=== PATIENT | male | born 1950 | race Caucasian/White ===

== ENCOUNTER 2025-01-03 10:02 | Inpatient (IN) ==
--- NOTE | 2024-12-22 08:58 | PAT Medication Instructions ---
Medication Instructions Date of Service December 22, 2024 Home Medications albuterol sulfate 90 mcg/actuation aerosol inhaler 1 inh inhalation QID PRN sob aspirin 81 mg tablet,delayed release 81 mg PO QAM atorvastatin 80 mg tablet 80 mg PO QAM cetirizine 10 mg tablet (Zyrtec) 10 mg PO DAILY PRN Allergy Symptoms hydrochlorothiazide 25 mg tablet 25 mg PO QAM metoprolol succinate 25 mg tablet,extended release 24 hr 25 mg PO QAM nitroglycerin 0.6 mg sublingual tablet 0.6 mg buccal UD PRN cp omeprazole 20 mg tablet,delayed release 20 mg PO QAM rivaroxaban 20 mg tablet (Xarelto) 20 mg PO QAM tamsulosin 0.4 mg capsule (Flomax) 0.4 mg PO BID Continue as directed nitroglycerin 0.6 mg sublingual tablet 0.6 mg buccal UD PRN cp (if needed) ASK your prescriber and surgeon rivaroxaban 20 mg tablet (Xarelto) 20 mg PO QAM aspirin 81 mg tablet,delayed release 81 mg PO QAM DO NOT take the morning of surgery cetirizine 10 mg tablet (Zyrtec) 10 mg PO DAILY PRN Allergy Symptoms hydrochlorothiazide 25 mg tablet 25 mg PO QAM Take morning of surgery With a small sip of water, OTHERWISE NOTHING TO EAT OR DRINK AFTER MIDNIGHT: albuterol sulfate 90 mcg/actuation aerosol inhaler 1 inh inhalation QID PRN sob (use if needed; please bring rescue inhaler with you to hospital day of surgery if possible) atorvastatin 80 mg tablet 80 mg PO QAM metoprolol succinate 25 mg tablet,extended release 24 hr 25 mg PO QAM omeprazole 20 mg tablet,delayed release 20 mg PO QAM tamsulosin 0.4 mg capsule (Flomax) 0.4 mg PO BID Take evening before surgery albuterol sulfate 90 mcg/actuation aerosol inhaler 1 inh inhalation QID PRN sob (if needed) cetirizine 10 mg tablet (Zyrtec) 10 mg PO DAILY PRN Allergy Symptoms (if needed) tamsulosin 0.4 mg capsule (Flomax) 0.4 mg PO BID Other Notes If you have any questions please call us at [phone] or [phone] or [phone] or [phone]
--- NOTE | 2024-12-22 12:50 | Anesthesiology Consultation ---
Date of Service December 22, 2024 Assessment & Plan (1) Encounter for pre-operative examination: - ASA/Xarelto instructions per surgeon/prescriber - Infectious disease screening: Per assessment on 12/22/24- No known recent infectious disease contacts or current infectious disease symptoms. - PCP note (12/22/24): Low to moderate risk.. Patient is cleared for scheduled surgery. - Acceptable risk for surgery pending surgeon-ordered cardiology preop note ([facility]). Chart Review Chart Review: Patient seen in Pre Admission Testing Teaching & Discussion Pre-Anesthesia Teaching/Discussion Notes: Instructed NPO after midnight before surgery,except medications with 15 cc of water. Medication instructions provided according to the PAT guidelines. History Surgery Operation Date: 01/04/25 12:25 Proposed Procedures p L2-L4 Decompression and Fusion - Dom Márquez DO Height/Weight Height: 5 ft 7 in Weight: 100.5 kg Allergies Allergy/AdvReac Type Severity Reaction Status Date / Time No Known Allergies Allergy Verified 12/22/24 08:01 Medications Home Medications Medication Instructions Recorded Confirmed Last Taken albuterol sulfate 90 mcg/actuation 1 inh inhalation QID PRN sob 12/22/24 12/22/24 Unknown aerosol inhaler aspirin 81 mg tablet,delayed 81 mg PO QAM 12/22/24 12/22/24 Unknown release atorvastatin 80 mg tablet 80 mg PO QAM 12/22/24 12/22/24 Unknown cetirizine 10 mg tablet (Zyrtec) 10 mg PO DAILY PRN Allergy Symptoms 12/22/24 12/22/24 Unknown hydrochlorothiazide 25 mg tablet 25 mg PO QAM 12/22/24 12/22/24 Unknown metoprolol succinate 25 mg 25 mg PO QAM 12/22/24 12/22/24 Unknown tablet,extended release 24 hr nitroglycerin 0.6 mg sublingual 0.6 mg buccal UD PRN cp 12/22/24 12/22/24 Unknown tablet omeprazole 20 mg tablet,delayed 20 mg PO QAM 12/22/24 12/22/24 Unknown release rivaroxaban 20 mg tablet (Xarelto) 20 mg PO QAM 12/22/24 12/22/24 Unknown tamsulosin 0.4 mg capsule (Flomax) 0.4 mg PO BID 12/22/24 12/22/24 Unknown Past Medical History Medical History Allergy-induced asthma Arthritis BPH (benign prostatic hyperplasia) CAD (coronary artery disease) 2022 > stent x1 Follows with [facility] cardio Carotid artery disease Carotid duplex 06/2024: <50% B/L ICA stenosis Degenerative disc disease GERD (gastroesophageal reflux disease) Hiatal hernia History of myocardial infarction (2002) Hx pulmonary embolism 2017, after long car ride Taking Xarelto Hyperlipidemia Hypertension Neuropathy Spinal stenosis Exercise / Class Metabolic Activity III < 4 Walking/Shop/Light housework Past Family History Family History Other No family history of adverse response to anesthesia Past Surgical History Surgical History H/O inguinal hernia repair R/L H/O wrist surgery Left History of cardiac cath 2022 > stent x1 History of carpal tunnel release Right History of colonoscopy History of heart artery stent 2022 > stent x1 History of repair of rotator cuff R/L Hx of vasectomy [place] teeth removed Past Anesthesia History No Hx of Anesthesia Complications and No Family Hx of Anesthesia Complications History of PONV No Hx of PONV and No Hx of Motion Sickness Social History Smoking Status: Former smoker Do You Dip or Chew Tobacco: No Smoking End Date: Quit 30+ years ago Hx Alcohol Use: Yes Alcohol type: beer and hard liquor alcohol intake frequency: a few times a month substance use type: does not use Review of Systems Patient denies chest pain, shortness of breath, fever, chills, cough, wheezing, palpitations. Physical Exam Vital Signs BP 127/75 P 51 TEMP 97.8 SP02 98%RA RESP 16 Physical Full cervical extension range of motion. Full TMJ range of motion. TMD > 3.5 finger breaths Mallampati Score II Dentition: missing molars, + crown Lungs: clear throughout to auscultation Cardiac: regular rate and rhythm, no murmurs noted Spine: normal Carotid arteries: negative bruit Extremities: no LE edema Lab Results Anesthesia Preop Results Results Anesthesia Widget: 2 WBC 4.60 K/ul (4.8-10.8) L 12/22/24 Hgb 15.3 g/dl (14.0-18.0) 12/22/24 Hct 44.5 % (42.0-52.0) 12/22/24 Plt 218 K/uL (130-400) 12/22/24 Na 141 mmol/L (136-145) 12/22/24 K 3.8 mmol/L (3.5-5.1) 12/22/24 Cl 105 mmol/L (98-107) 12/22/24 CO2 31 mmol/L (21-32) 12/22/24 BUN 22 mg/dl (6-23) 12/22/24 Creat 0.99 mg/dl (0.6-1.4) 12/22/24 Glucose Level 92 mg/dl (70-99(Fasting)) 12/22/24 PT 16.1 Seconds (9.0-12.0) H 12/22/24 PTT 43 Seconds (21-31) H 12/22/24 INR 1.6 (0.9-1.1) H 12/22/24 Urine Color Dark Yellow 12/22/24 Urine Appearance Clear (Clear) 12/22/24 Urine pH 5.5 (4.5-7.5) 12/22/24 Urine Specific [place] 1.033 (1.000-1.030) H 12/22/24 Urine Protein Negative (Negative) 12/22/24 Urine Glucose (UA) Negative (Negative) 12/22/24 Urine Ketones Trace (Negative) H 12/22/24 Urine Blood Negative (Negative) 12/22/24 Urine Nitrite Negative (Negative) 12/22/24 Urine Bilirubin Negative (Negative) 12/22/24 Urine Urobilinogen Negative (Negative) 12/22/24 Urine Leukocyte Esterase Negative (Negative) 12/22/24 Blood Type A Positive 12/22/24 Antibody Screen NEGATIVE 12/22/24 Testing Laboratory Results Elevated coags- patient taking Xarelto Electrocardiogram Date: 03/31/24 Marked SB at 49bpm. NS TWA. Chest X-Ray Date: 03/31/24 Findings: + NAD Stress Test Date: 06/21/24 Type: exercise Exercise echocardiographic exam is "normal" without resting LV wall motion abnormalities or inducible ischemia. 6.4 METS. 102% MPHR. Rest echo: LVEF 60 to 64%. Grade 1 diastolic dysfunction. Nondilated cardiac chambers. No significant valvular pathology. There is lipomatous hypertrophy of the intraatrial septum. Cardiac Catheterization Date: 04/03/22 Successful stenting of a severe thrombotic occlusion of the mid RCA with a single Xience INDERJIT. Mild disease of the codominant circumflex. No significant disease of the LAD. Preserved LVEF. Other Testing Carotid artery duplex Date: 06/21/24 The right vertebral artery demonstrates antegrade flow. The left vertebral artery demonstrates antegrade flow. Right carotid artery duplex examination indicates evidence of less than 50% stenosis of the internal carotid artery. Left carotid artery duplex examination indicates evidence of less than 50% stenosis of the internal carotid artery.
[2025-01-03] MEDS ORDERED: PROPOFOL IV EMULSION 10 MG/ML 20 ML VIAL IV ONE (10:17)
[2025-01-03] MEDS ORDERED: LIDOCAINE 2% 2 ML VIAL/AMP(20MG/ML) INFIL ONE (10:17)
[2025-01-03] MEDS ORDERED: KETAMINE HCL 10MG/ML SYR ONE (10:17)
[2025-01-03] MEDS ORDERED: ROCURONIUM BROMIDE 10 MG/ML 5 ML VIAL IV ONE ×2 (10:17→13:49)
[2025-01-03] MEDS: LR 15ML/HR IV SCH (10:33)
[2025-01-03] MEDS: GABAPENTIN 300 MG CAP PO SCH (10:33)
[2025-01-03] MEDS: LR 60ML/HR IV SCH (10:33)
[2025-01-03] MEDS: CeleBREX 200 MG CAP PO SCH (10:33)
[2025-01-03] MEDS: ACETAMINOPHEN 500 MG TAB PO SCH (10:33)
[2025-01-03] MEDS ORDERED: ONDANSETRON INJ 2 MG/ML 2 ML VIAL IV PRN ×2 (11:22→16:23)
[2025-01-03] MEDS ORDERED: PROMETHAZINE HCL 6.25 MG in SODIUM CHLORIDE 0.9% 50 ML IV PRN (11:22)
[2025-01-03] MEDS ORDERED: ATROPINE SULFATE 0.1 MG/ML 10ML SYR IV PRN (11:22)
[2025-01-03] MEDS ORDERED: HYDROmorphone INJ 1 MG/ML SYRINGE IV PRN (11:22)
--- NOTE | 2025-01-03 12:09 | History & Physical Bridge Note ---
Date of Service January 03, 2025 History & Physical Bridge Note I have examined the patient, reviewed the History & Physical and in the interval since the performance of the History & Physical I have noted the following changes of clinical significance: no changes noted
--- NOTE | 2025-01-03 12:13 | History & Physical Report ---
Date of Service January 03, 2025 Assessment & Plan (1) Multilevel lumbosacral spondylosis with radiculopathy: Plan: L3-L5 decompression and fusion History of Present Illness Chief Complaint: Back and leg pain Primary Care Provider: Cata Diaz DO This is a 74-year-old male who presents with cramps in his back and leg pain after failing course of nonoperative care is here for surgical invention. Allergies Allergy/AdvReac Type Severity Reaction Status Date / Time rosuvastatin [From Crestor] AdvReac Rash Verified 01/03/25 10:16 Home Medications Medication Instructions Recorded Confirmed Type albuterol sulfate 90 mcg/actuation 1 inh inhalation QID PRN sob 12/22/24 01/03/25 History aerosol inhaler aspirin 81 mg tablet,delayed 81 mg PO QAM 12/22/24 01/03/25 History release atorvastatin 80 mg tablet 80 mg PO QAM 12/22/24 01/03/25 History cetirizine 10 mg tablet (Zyrtec) 10 mg PO DAILY PRN Allergy Symptoms 12/22/24 01/03/25 History hydrochlorothiazide 25 mg tablet 25 mg PO QAM 12/22/24 01/03/25 History metoprolol succinate 25 mg 25 mg PO QAM 12/22/24 01/03/25 History tablet,extended release 24 hr nitroglycerin 0.6 mg sublingual 0.6 mg buccal UD PRN cp 12/22/24 01/03/25 History tablet omeprazole 20 mg tablet,delayed 20 mg PO QAM 12/22/24 01/03/25 History release rivaroxaban 20 mg tablet (Xarelto) 20 mg PO QAM 12/22/24 01/03/25 History tamsulosin 0.4 mg capsule (Flomax) 0.4 mg PO BID 12/22/24 01/03/25 History Past Med/Surg History Problem List (Updated 01/03/25 @ 12:17 by Dom Márquez DO) Multilevel lumbosacral spondylosis with radiculopathy Encounter for pre-operative examination Medical History Allergy-induced asthma Arthritis BPH (benign prostatic hyperplasia) CAD (coronary artery disease) 2022 > stent x1 Follows with S cardio Carotid artery disease Carotid duplex 06/2024: <50% B/L ICA stenosis Degenerative disc disease GERD (gastroesophageal reflux disease) Hiatal hernia History of myocardial infarction (2002) Hx pulmonary embolism 2017, after long car ride Taking Xarelto Hyperlipidemia Hypertension Neuropathy Spinal stenosis Surgical History H/O inguinal hernia repair R/L H/O wrist surgery Left History of cardiac cath 2022 > stent x1 History of carpal tunnel release Right History of colonoscopy History of heart artery stent 2022 > stent x1 History of repair of rotator cuff R/L Hx of vasectomy [place] teeth removed Family History Other No family history of adverse response to anesthesia Social History (System 09/21/19 @ 13:51 by Agueda Reyes) Smoking Status: Former smoker Tobacco Type: Cigarettes Smoking End Date: Quit 30+ years ago; Second Hand Exposure: No; Do You Dip or Chew Tobacco: No; Hx Alcohol Use: Yes Alcohol type: beer and hard liquor Preferred Language: Yi Blueprint Machine Operator Required: No Beliefs That Will Affect Care: Oriental Orthodox Oriental Orthodox Beliefs: Jehovah'S Witness Current Living Situation: Spouse Feels Safe at Home: Yes Safety Concerns: Feels Safe At This Time Assistive Devices: Contacts, Glasses and Hearing Aid - Bilateral Physical Exam Physical Exam: Patient is alert and oriented Heart regular rhythm Lungs clear Results & Data Results & Data Vital Signs (Past 12 Hours) Vital Signs Temp Pulse Resp BP Pulse Ox O2 Del Method 01/03/25 10:23 36.7 C 70 20 162/97 H 95 Room Air
[2025-01-03] MEDS ORDERED: GLYCOPYRROLATE 0.2 MG/ML VIAL ONE ×2 (12:33→14:52)
[2025-01-03] MEDS ORDERED: ePHEDrine sulfate 50 MG/5 ML SYR ONE (12:54)
[2025-01-03] MEDS: BUPIVACAINE/EPINEPHRINE 0.25% 1:200,000 30 ML VIAL ONE (12:55)
[2025-01-03] MEDS ORDERED: DEXAMETHASONE SOD INJ 4 MG/ML VIAL ONE (12:59)
[2025-01-03] MEDS ORDERED: ONDANSETRON INJ 2 MG/ML 2 ML VIAL ONE (13:33)
[2025-01-03] MEDS: FLOSEAL HEMOSTATIC MATRIX 10ML TOP ONE (14:30)
[2025-01-03] MEDS ORDERED: SUGAMMADEX SODIUM 200 MG/2 ML VIAL IV ONE (14:34)
[2025-01-03] MEDS: ceFAZolin 330 MG/ML 1 GM VIAL ONE (14:46)
[2025-01-03] MEDS ORDERED: HYDROmorphone INJ 2 MG/ML SYR/VIAL ONE (14:48)
--- NOTE | 2025-01-03 15:03 | Operative Report ---
Post Operative Report Pre & Post Diagnosis Operation Date: 01/03/25 11:25 Pre-Op Diagnosis: #1 lumbar spondylosis with radiculopathy #2 lumbar spondylolisthesis #3 spinal stenosis Post-Op Diagnosis: Same I identified the patient and participated in the time-out.: Yes Procedure Operation Date: 01/03/25 11:25 Actual Procedures #1 lumbar decompression bilaterally of facetectomies and foraminotomies L2-L3, L3-L4 and L4-5 for #2 posterior spinal fusion L3-L5 for #3 placed posterior instrumentation L3-L5 using camber. #4 interbody fusion L3-L4 L4-L5. #5 placement Spira 14 x 26 mm x 2 at L3-L4 and 15 x 26 mm x 2 at L4-L5. #6 placement locally harvested morselized autograft in the posterior gutters. #7 placement of Proteus combined with Koros bone graft in the posterior lateral gutters and os design interbody space. #8 application of versa wrap of the exposed dura. Surgeon Dom Márquez, DO Steward/Stewardess Room Stefania Nielson Estimated Blood Loss 600 Findings See Below The patient is 5 foot 7 weighing over 97 kg with a BMI in excess of 33. This combined with an EBL of greater than 600 cc created significant technical difficulty with positioning exposure and the procedure itself. This had at least 40% increased operative time. And recommending a modifier 22. Specimens None Indications This is a 74-year-old male who presents above-mentioned diagnosis of failing course of nonoperative care is here for surgical invention. Description of Procedure Patient was met with identified informed consent obtained. Patient was then taken to the operative suite underwent patient placed in a prone position on the Matthew table top of the Jose frame. All bony promises well-padded eyes inspected to ensure no external pressure placed upon them. This point the lumbar spine was prepped and draped in normal sterile fashion. Sharp dissection with the assistance of Bovie cautery performed down to and exposing the lamina and transverse processes of L3-L4-L5. From caudal to cephalad fashion complete laminectomy L4 was performed occluding bilateral medial facetectomies followed by L3 with bilateral medial facetectomies and lastly partial laminectomy of L2 with bilateral medial facetectomies to address severe subarticular stenosis. Pedicle screws then placed in L3-L4-L5 bilaterally with assistance of fluoroscopy and the proper size olaf placed. By way of a transfer and approach and right a discectomy of L4-L5 was performed endplates curetted to subcortical bleeding bone and a 15 x 26 mm Spira cage tapped in position. I then approached the left L4-L5 transforaminal space. Again discectomy performed. Endplates guided to subcortical bleeding bone and a second 15 x 26 mm Spira cage tapped in position. Then proceeded to L3-L4 and by way of transforaminal portion of the left discectomy was performed. Endplates guided to subcortical bone and a 14 x 26 mm Spira cage tapped into position. Then proceeded to the right transforaminal region at all 3 L4. Again discectomy performed. Endplates created to subcortically bone and a second 14 x 26 mm Spira cage tapped in position. Please note all cages were packed with os design bone graft. Rods then compressed locked in final position bilaterally. The transverse processes of L3 L4-5 burred to subcortical bleeding bone. Koros combined with Proteus bone graft and local autograft placed in posterolateral gutters. Versa wrap placed over the exposed dura. 15 round ELEONORA drain inserted. The incision was then closed with 1 Vicryl fascia 2-0 Vicryl subcutaneously and 4-0 Monocryl for final skin closure. Steri-Strips sterile dressing placed. Patient waken taken to PACU in stable condition. Please note Stefania Nielson was present out the entire procedure and brought the patient positioning complex portion of the surgery and final skin closure. I attest to the content of the Intraoperative Record and any orders documented therein. Any exceptions are noted below.
--- NOTE | 2025-01-03 15:30 | Fluoroscopy Report ---
FL lumbar spine 2-3V CLINICAL HISTORY: L3-L5 DECOMPRESSION AND FUSION COMPARISON STUDY: No previous studies for comparison. Fluoroscopy time: 14 seconds. Number of fluoroscopic images: 2 Ka,r: 13.813 mGy. FINDINGS: Fluoroscopy was provided during L3-L5 decompression and fusion. There are interbody spaces at the L3-L4 and L4-L5 levels. Bilateral pedicle screws at the L3, L4 and L5 levels are intact. There are no unexpected radiopaque foreign bodies. IMPRESSION: Fluoroscopy provided during L3-L5 decompression and fusion. ACT 112: Negative or not required by law. Electronically signed by: Parish Mehta M.D. 01/03/2025 3:28 PM
[2025-01-03] MEDS ORDERED: NITROGLYCERIN 0.6 MG/1 TAB 100 TAB BTL SL PRN (16:23)
[2025-01-03] MEDS ORDERED: SOD PHOSPHATE/SOD BIPHOSPHATE ENEMA 132 ML BTL PR PRN (16:23)
[2025-01-03] MEDS ORDERED: NALOXONE HCL 0.4 MG/1 ML VIAL/CARP IV PRN (16:23)
[2025-01-03] MEDS ORDERED: diphenhydrAMINE Capsule 25 MG CAP PO PRN (16:23)
[2025-01-03] MEDS ORDERED: ACETAMINOPHEN 1,000 MG/100 ML VIAL IV PRN (16:23)
[2025-01-03] MEDS ORDERED: ALBUTEROL HFA 8 GM INHALER INH PRN (16:23)
[2025-01-03] MEDS ORDERED: PROMETHAZINE 12.5 MG/50.5 ML BAG IV PRN (16:23)
[2025-01-03] MEDS ORDERED: LORazepam 0.5 MG TAB PO PRN (16:23)
[2025-01-03] MEDS ORDERED: ALUMINUM/MAGNESIUM SUSP 30 ML UDC PO PRN (16:23)
[2025-01-03] MEDS ORDERED: METOCLOPRAMIDE HCL INJ 5 MG/ML 2 ML VIAL IV PRN (16:23)
[2025-01-03] MEDS ORDERED: MAGNESIUM HYDROXIDE SUSP 30 ML UDC PO PRN (16:23)
[2025-01-03] MEDS ORDERED: DO NOT ADMINISTER PNEUMOCOCCAL VACCINE PRN (16:23)
[2025-01-03] MEDS ORDERED: HYDROmorphone INJ 0.5 MG/0.5 ML SYR IV PRN (16:23)
[2025-01-03] MEDS ORDERED: LORazepam Inj 0.5 MG in SYRINGE 0.25 ML IV PRN (16:23)
[2025-01-03] MEDS ORDERED: ONDANSETRON 4 MG OD TAB PO PRN (16:23)
[2025-01-03] MEDS ORDERED: DO NOT ADMINISTER FLU VACCINE PRN (16:23)
[2025-01-03] MEDS ORDERED: CETIRIZINE HCL 10 MG TABLET PO PRN (16:23)
[2025-01-03] MEDS: SODIUM CHLORIDE 0.9% 1,000 ML IV SCH (17:05)
[2025-01-03] MEDS: HYDROmorphone INJ 1 MG/ML SYRINGE IV PRN (17:06)
--- NOTE | 2025-01-03 17:14 | Hospitalist Consultation ---
Date of Consultation January 03, 2025 Assessment & Plan (1) Multilevel lumbosacral spondylosis with radiculopathy: (2) Carotid artery disease: (3) CAD (coronary artery disease): (4) BPH (benign prostatic hyperplasia): (5) GERD (gastroesophageal reflux disease): (6) Hx pulmonary embolism: (7) Hypertension: (8) Hyperlipidemia: Plan #Lumbar spondylosis with radiculopathy #Lumbar spondylolisthesis #Spinal stenosis - pt s/p lumbar surgery on 01/03/25 - management per ortho spine - PT / OT when cleared - cont bowel regimen - Discussed use of ICS and ensuring BMs daily to qod. #CAD - s/p INDERJIT to mRCA 2022 - pt currently asymptomatic - on aspirin at home, cont - cont metoprolol and statin #h/o PE - on xarelto, resume when cleared from post op standpoint #HTN - cont metoprolol and HCTZ - monitor renal function post op #HLD - cont atovastatin #BPH - cont tamsulosin #GERD - cont PPI 01/03: pt's at bedside History of Present Illness Reason for Consultation: Medical Management Requesting Physician: Dom Márquez DO Attending Physician: Dom Márquez DO History of Present Illness 74 yr old M with PMHx of CAD s/p STEMI with INDERJIT to mRCA (03/2022), h/o DVT/PE (2017), ?antithrombin III deficiency, HTN, HLD, GERD, hollenhorst plaque, admitted to [facility] for lumbar surgery. Hospitalist team consulted for post op medical management. Pt currently sitting up eating. He is denying any complaints at this time. He is having some pain at the surgical site but tolerable pain. Allergies Allergy/AdvReac Type Severity Reaction Status Date / Time rosuvastatin [From Crestor] AdvReac Rash Verified 01/03/25 10:16 Home Medications Medication Instructions Recorded Confirmed Type albuterol sulfate 90 mcg/actuation 1 inh inhalation QID PRN sob 12/22/24 01/03/25 History aerosol inhaler aspirin 81 mg tablet,delayed 81 mg PO QAM 12/22/24 01/03/25 History release atorvastatin 80 mg tablet 80 mg PO QAM 12/22/24 01/03/25 History cetirizine 10 mg tablet (Zyrtec) 10 mg PO DAILY PRN Allergy Symptoms 12/22/24 01/03/25 History hydrochlorothiazide 25 mg tablet 25 mg PO QAM 12/22/24 01/03/25 History metoprolol succinate 25 mg 25 mg PO QAM 12/22/24 01/03/25 History tablet,extended release 24 hr nitroglycerin 0.6 mg sublingual 0.6 mg buccal UD PRN cp 12/22/24 01/03/25 History tablet omeprazole 20 mg tablet,delayed 20 mg PO QAM 12/22/24 01/03/25 History release rivaroxaban 20 mg tablet (Xarelto) 20 mg PO QAM 12/22/24 01/03/25 History tamsulosin 0.4 mg capsule (Flomax) 0.4 mg PO BID 12/22/24 01/03/25 History Patient History Medical History Allergy-induced asthma Arthritis BPH (benign prostatic hyperplasia) CAD (coronary artery disease) 2022 > stent x1 Follows with [facility] cardio Carotid artery disease Carotid duplex 06/2024: <50% B/L ICA stenosis Degenerative disc disease GERD (gastroesophageal reflux disease) Hiatal hernia History of myocardial infarction (2002) Hx pulmonary embolism 2017, after long car ride Taking Xarelto Hyperlipidemia Hypertension Neuropathy Spinal stenosis Surgical History H/O inguinal hernia repair R/L H/O wrist surgery Left History of cardiac cath 2022 > stent x1 History of carpal tunnel release Right History of colonoscopy History of heart artery stent 2022 > stent x1 History of repair of rotator cuff R/L Hx of vasectomy [place] teeth removed Family History Other No family history of adverse response to anesthesia Social History (System 09/21/19 @ 13:51 by Agueda Reyes) Smoking Status: Former smoker Tobacco Type: Cigarettes Smoking End Date: Quit 30+ years ago; Second Hand Exposure: No; Do You Dip or Chew Tobacco: No; Hx Alcohol Use: Yes Alcohol type: beer and hard liquor Preferred Language: Niuean Nutrition Therapist Required: No Beliefs That Will Affect Care: Christianity Christianity Beliefs: Yazidi Current Living Situation: Spouse Feels Safe at Home: Yes Safety Concerns: Feels Safe At This Time Assistive Devices: Contacts, Glasses and Hearing Aid - Bilateral Review of Systems Review of Systems: Comprehensive ROS completed and is otherwise negative. Physical Exam Physical Exam: Gen: no acute distress, lying in bed comfortable HEENT: NC/AT, MMM Lungs: nonlabored breathing, CTAB CVS: s1s2nl, RRR Abd: nl bowel sounds, soft, NT / ND : no rizzo Ext: no edema Post surgical drain in place Neuro: AAOx3 Psych: calm, cooperative Results & Data Results & Data Vital Signs (Past 12 Hours) Vital Signs Temp Pulse Pulse Pulse Resp BP BP 01/03/25 16:41 68 14 118/79 01/03/25 16:10 36.3 C L 63 16 114/81 01/03/25 15:55 36.4 C L 70 12 112/74 01/03/25 15:45 64 18 129/75 01/03/25 15:35 76 16 114/67 01/03/25 15:25 74 16 125/85 01/03/25 15:15 36.0 C L 82 16 128/78 01/03/25 10:23 36.7 C 70 20 162/97 H Pulse Ox O2 Del Method O2 Flow Rate 01/03/25 16:41 92 Room Air 01/03/25 16:10 95 Room Air 01/03/25 15:55 94 Room Air 01/03/25 15:45 98 Oxymask 4 01/03/25 15:35 95 Oxymask 4 01/03/25 15:25 97 Oxymask 4 01/03/25 15:15 97 Oxymask 6 01/03/25 10:23 95 Room Air PG Care Time/CCT Total # of Minutes Spent Total Time Spent with Patient: Total time spent is greater than 50% in coordination of care (as documented) at patient's floor/unit and/or counseling patient: Coding Level of Care Code 74227 IN/OBS CONSULT LVL 4,60M Diagnoses Multilevel lumbosacral spondylosis with radiculopathy M47.27 Carotid artery disease I77.9 CAD (coronary artery disease) I25.10 BPH (benign prostatic hyperplasia) N40.0 GERD (gastroesophageal reflux disease) K21.9 Hx pulmonary embolism Z86.711 Hypertension I10 Hyperlipidemia E78.5
--- NOTE | 2025-01-03 17:45 | Anesthesiology Progress Note ---
Date of Service January 03, 2025 Anesthesia Post Procedure Vital Signs Vital Signs: Temp Pulse Pulse Pulse Resp BP BP 01/03/25 16:41 68 14 118/79 01/03/25 16:10 97.3 F L 63 16 114/81 01/03/25 15:55 97.5 F L 70 12 112/74 01/03/25 15:45 64 18 129/75 01/03/25 15:35 76 16 114/67 01/03/25 15:25 74 16 125/85 01/03/25 15:15 96.8 F L 82 16 128/78 01/03/25 10:23 98.1 F 70 20 162/97 H Pulse Ox O2 Del Method O2 Flow Rate 01/03/25 16:41 92 Room Air 01/03/25 16:10 95 Room Air 01/03/25 15:55 94 Room Air 01/03/25 15:45 98 Oxymask 4 01/03/25 15:35 95 Oxymask 4 01/03/25 15:25 97 Oxymask 4 01/03/25 15:15 97 Oxymask 6 01/03/25 10:23 95 Room Air Pain Intensity Bilateral Lower Back: Pain Intensity: 8 Transfer of Care Handoff Completed per policy Notes Mental Status: alert / awake / arousable and participated in evaluation Patient Amnestic to Procedure: Yes Nausea / Vomiting: adequately controlled Pain: adequately controlled Airway Patency, RR, SpO2: stable & adequate BP & HR: stable & adequate Hydration State: stable & adequate Anesthetic Complications: no major complications apparent and Pt Satisfied with anesthetic care
[2025-01-03] MEDS: TAMSULOSIN HCL 0.4 MG CAP PO SCH (20:48)
[2025-01-03] MEDS: DOCUSATE SODIUM/SENNA 50/8.6MG TAB PO SCH (20:48)
[2025-01-04] MEDS: POLYETHYLENE (MIRALAX) 17 GM PACK PO SCH (05:16)
[2025-01-04 06:54] LABS: Hematocrit (blood only) 38.1 % (42.0-52.0); Hemoglobin 12.8 g/dl (14.0-18.0); Mean Corpuscular Hemoglobin 29.1 pg (25.0-34.0); Mean Corpuscular Volume 86.6 fL (80.0-100.0); Platelet Count 235 K/uL (130-400); RDW Standard Deviation 41.7 fL (36.4-46.3); Red Blood Count 4.40 M/uL (4.70-6.10); White Blood Count 14.94 K/ul (4.8-10.8)
[2025-01-04 07:08] LABS: Anion Gap 10.0 (3-11); Blood Urea Nitrogen 21.0 mg/dl (6-23); Calcium 8.1 mg/dl (8.6-10.3); Carbon Dioxide 24.0 mmol/L (21-32); Chloride 104.0 mmol/L (98-107); Creatinine Clr Calc Pharmacy 73.0 ml/min; Glucose 143.0 mg/dl (70-99(Fasting)); Potassium 4.4 mmol/L (3.5-5.1); Sodium 138.0 mmol/L (136-145)
[2025-01-04 07:55] VITALS: RESP 18
[2025-01-04] MEDS: hydroCHLOROthiazide 25 MG TAB PO SCH (08:00)
[2025-01-04] MEDS: METOPROLOL SUCC 25MG EXT REL TAB PO SCH (08:00)
[2025-01-04] MEDS: ASPIRIN 81 MG ECTAB PO SCH (08:01)
[2025-01-04] MEDS: ATORVASTATIN 40 MG TAB PO SCH (08:01)
[2025-01-04] MEDS: dexAMETHasone 6 MG in SYRINGE 0 ML IV SCH (08:02)
[2025-01-04 08:27] LABS: Immature Granulocytes # (auto) 0.10 K/uL (0.01-0.20); Immature Granulocytes % (auto) 0.7 %; Polychromasia 1+
--- NOTE | 2025-01-04 08:29 | Orthopedic Progress Note ---
Date of Service January 04, 2025 Assessment & Plan (1) Multilevel lumbosacral spondylosis with radiculopathy: Plan: Speedy is postoperative day 1 status post L2-4 decompression and fusion. He is doing really well. Will start physical therapy today. Continue with pain control. DVT prophylaxis is in the form of teds and SCDs. Work on aggressive bowel regimen. Anticipate discharge home over the next couple of days Admission and Anticipated Discharge Date Admission Date: January 03, 2025 Subjective Rodriguez is postoperative day 1 status post L2-4 decompression and fusion. He feels great. He has been up and ambulatory around the hallways already. Pain is controlled. ELEONORA drain output left shift is 120 cc. H&H this morning are 12.8 and 38.1 respectively. No other complaints. Review of Systems Review of Systems: All systems reviewed & are unremarkable except as noted in HPI & below Physical Exam Physical Exam: He is alert and oriented x 3 sitting up in bed eating breakfast No acute distress Lumbar dressing is clean dry intact with functioning ELEONORA drain Strength intact bilateral lower extremities Results & Data Vital Signs (Past 12 Hours) Vital Signs Temp Pulse Resp BP BP Pulse Ox O2 Del Method 01/04/25 07:55 36.5 C 65 18 102/65 95 Room Air 01/04/25 03:24 37.0 C 61 16 102/63 93 Room Air 01/03/25 23:37 36.9 C 73 16 114/72 95 Room Air
--- NOTE | 2025-01-04 10:47 | Hospitalist Progress Note ---
"Date of Service January 04, 2025 Assessment & Plan (1) Multilevel lumbosacral spondylosis with radiculopathy: (2) Carotid artery disease: (3) CAD (coronary artery disease): (4) BPH (benign prostatic hyperplasia): (5) GERD (gastroesophageal reflux disease): (6) Hx pulmonary embolism: (7) Hypertension: (8) Hyperlipidemia: Plan This is a 74 year old gentleman with PMHx of HTN, GERD,BPH who presented to the hospital for an elective spinal surgery with Dr. Márquez on 01/03/2025. #Lumbar spondylosis with radiculopathy s/p spinal surgery on 01/03/[address] Márquez management per ortho spine PT/OT following Continue bowel regimen. s/p rizzo removal 01/04 ICS #CAD | HTN s/p INDERJIT to mRCA 2022 pt currently asymptomatic on aspirin at home, cont cont metoprolol, HCTZ and statin #h/o PE on Xarelto, resume when cleared from post op standpoint #BPH- cont tamsulosin #GERD- cont PPI DVT prophylaxis: Xarelto when able Code: full At this time our hospitalist service will sign off. Please call us back with any questions or concerns. Admission and Anticipated Discharge Date Admission Date: January 03, 2025 Supervising Physician Co-Signing Physician Notes The patient was not seen by me. The chart was reviewed. Case discussed with DONNA Kirkpatrick. Agree with assessment and plan Subjective Mayank was seen & examined this morning. He reports to be feeling well following his surgery today. he states he did well with PT/OT. Reports he may be going home tomorrow vs Thursday. He denied any CP or SOB. Physical Exam Physical Exam: General: NAD, VS: BP 149/81; P83; R18; T37C Resp: normal respiratory effort Extremities: Moves all extremities, no edema Neuro: A&O x3 Skin: intact, no lesions noted Results & Data Results & Data Vital Signs (Past 12 Hours) Vital Signs Temp Pulse Resp BP BP Pulse Ox O2 Del Method 01/04/25 07:55 36.5 C 65 18 102/65 95 Room Air 01/04/25 03:24 37.0 C 61 16 102/63 93 Room Air 01/03/25 23:37 36.9 C 73 16 114/72 95 Room Air PG Care Time/CCT Total # of Minutes Spent Total Time Spent with Patient: Total time spent is greater than 50% in coordination of care (as documented) at patient's floor/unit and/or counseling patient: Coding Level of Care Code 38345 SUB INP/OBS CARE 2/35MIN Diagnoses Multilevel lumbosacral spondylosis with radiculopathy M47.27 Carotid artery disease I77.9 CAD (coronary artery disease) I25.10 BPH (benign prostatic hyperplasia) N40.0 GERD (gastroesophageal reflux disease) K21.9 Hx pulmonary embolism Z86.711 Hypertension I10 Hyperlipidemia E78.5"
[2025-01-04] MEDS: ACETAMINOPHEN 500 MG TAB PO PRN (12:08)
[2025-01-04] MEDS: FAMOTIDINE 20 MG TAB PO PRN (12:09)
[2025-01-05] MEDS ORDERED: Nursing to Pharmacy Communication SCH (05:45)
[2025-01-05 07:14] VITALS: BP 131/74; TEMP 98.1; O2SAT 94
[2025-01-05 09:54] VITALS: PULSE 64
--- NOTE | 2025-01-05 10:20 | Discharge Summary ---
Date of Service January 05, 2025 Admission HPI Per Admitting Provider This is a 74-year-old male who presents with cramps in his back and leg pain after failing course of nonoperative care is here for surgical invention. Principal Diagnosis Lumbar spondylosis with radiculopathy Discharge Data Allergies Allergy/AdvReac Type Severity Reaction Status Date / Time rosuvastatin [From Crestor] AdvReac Rash Verified 01/03/25 10:16 Consultations 01/03/25 16:23 Consult Hospitalist Routine Procedures Performed Operation Date: 01/03/25 11:25 Actual Procedures p L2-L4 Decompression and Fusion(Not Applicable) - Dom Márquez DO Ordered Studies 01/03/25 [place] lumbar spine 2-3V Routine Hospital Course (1) Multilevel lumbosacral spondylosis with radiculopathy: Patient underwent lumbar decompression and fusion tolerated this well was taken to orthopedic for postoperative. Postop he progressed appropriate. Marked improvement of his back and leg symptoms. Good strength testing. ELEONORA drain decreasing. Separately discharged home. Discharge orders and instructions from the chart for further review. Total Time Total Time Spent Total Time Spent (In Minutes): 20 minutes Discharge Plan Discharge Items Patient Disposition: Home - Self-Care Reason For Visit: Two-Level Lumbosacral Spondylosis with Radiculopat Discharge Diagnosis: Multilevel lumbar spondylosis with radiculopathy Activity: As commented below Non-emergency contact: Primary Care Provider Call non-emergency contact if: you have any medication questions Follow-up/Referrals: Cata Diaz DO [Primary Care Provider] - Diet: Regular Addtl Attending Provider Instructions: ACTIVITY RECOMMENDATIONS: SELF CARE INSTRUCTIONS AFTER THORACIC/LUMBAR FUSIONS 1. You may walk to your tolerance. It is good exercise for your legs and back. Expect some back and intermittent leg aches and pains. 2. You may perform "counter-top" level activities (make a sandwich, joan with a project, etc.). 3. No bending or lifting of more than 10 pounds or back twisting of any nature (roll like a log when turning in bed). 4. You may ride in a car for 20-30 minutes at a time. No driving until after your first visit with your doctor. 5. Frequent changes of position and restricting sitting to 30 minutes at a time will help limit the amount of back spasms and stiffness you may experience. 6. You may discontinue the use of ambulatory aids (cane, crutches, etc.) once your strength and confidence allow. 7. You may wire drawing die maker the shower and let water strike your incision when you arrive home at least once daily. Do not take a tub bath, sit in a hot tub or go into a swimming pool until after your first recheck in the office. 8. You may resume previous diet. SPECIAL CARE INSTRUCTIONS: VERY IMPORTANT TO READ AND REVIEW A. Your surgical incision has been closed with a cosmetic suture under the skin that will dissolve in about 6 weeks. In 14 days, you can use a pair of clean scissors and cut the suture that is left outside of the skin at the ends of your incision. 1. The small skin tapes can be removed 7 days after surgery if they have not fallen off by that point. 2. You may keep the wound open to air as much as possible to promote healing after post-op day number 5 unless told otherwise by your doctor. 3. If you think the wound looks like it is becoming infected (redness or worsening drainage) and/or you are experiencing fever, chill or worsening back pain and muscle spasms, contact the office so that we may evaluate you as soon as possible. B. Complications are uncommon, but please contact us if you have any signs or symptoms of: 1. wound infection (fever higher than 102.5 degrees F, redness, separation of wound, drainage, or increasing pain from the incision) 2. blood clots in legs (pain, swelling, redness and warmth in legs) 3. urinary tract infection (fever higher than 102.5 degrees F, burning upon urination or increased frequency of urination) 4. nerve problems (inability to walk on your toes or heels, numbness, loss of bowel or bladder control) 5. any other symptoms that concern you C. Please call the office at if you have any concerns or questions about your operation or recovery. D. No smoking! Smoking drastically decreases the chance of a solid fusion. E. Do not take any anti-inflammatory medications (Indocin, Advil, Motrin, Aspirin, Naprosyn, etc.) as these may inhibit the chance of a solid fusion. Tylenol is okay to take for pain. MANAGING PAIN AFTER SPINAL SURGERY 1. Narcotic medication is intended for short-term use and will be provided for surgical pain. Surgical pain usually lasts for a period of 4-6 weeks. Narcotic medication includes Percocet, Vicodin, Darvocet, Tylenol #3 or Lortab. 2. Longer-term pain is more appropriately treated with non-narcotic medication such as Tylenol ES. 3. Muscle spasm is not appropriately treated with narcotics. Muscle relaxers such as Soma, Flexeril or Skelaxin can be used along with Tylenol ES. 4. Remember that we all live with some "aches and pains". This is not unusual or uncommon after an injury or as we get older. a. Back pain is expected and may include muscle spasms for 4 to 6 weeks after surgery. The pain should gradually improve. If the pain worsens for no apparent reason, please contact the office. b. Intermittent leg pain may also be experienced and should not be concerned about unless it worsens for no apparent reason. If so, please contact the office. 5. We will provide appropriate medication within the normal guidelines of their prescribed use. We will also be very cautious and aware of potential abuse and extended duration of patients' medication needs. a. Pain medications are for your comfort and to assist with sleep and rest so that the tissue can heal. They are not provided in order to return to normal activity and should not be used through the day. To do so or worsening pain at night can result from ongoing tissue damage and development of tolerance to the prescribed medicine. 6. Please allow 2-3 days to process refills. Prescriptions will not be mailed but must be picked up at the office. FOLLOW UP VISIT: Keep your scheduled follow-up appointment. Any questions, please call the office at . Pending Studies at Discharge: No Stand-Alone Forms: My [facility] [employer], Smoking Cessation Medications and DC Order Prescriptions: New tramadol 50 mg tablet 50 mg PO Q6H PRN (Reason: pain, moderate) Qty: 30 0RF oxycodone 5 mg tablet 5 mg PO Q6H PRN (Reason: pain) Qty: 30 0RF Continued atorvastatin 80 mg Tablet 80 mg PO QAM cetirizine [Zyrtec] 10 mg Tablet 10 mg PO DAILY PRN (Reason: Allergy Symptoms) aspirin [Aspir-81] 81 mg Tablet,Delayed Release (Dr/Ec) 81 mg PO QAM tamsulosin [Flomax] 0.4 mg Capsule 0.4 mg PO BID nitroglycerin 0.6 mg Tablet, Sublingual 0.6 mg buccal UD PRN (Reason: cp) hydrochlorothiazide 25 mg Tablet 25 mg PO QAM metoprolol succinate 25 mg Tablet Extended Release 24 Hr 25 mg PO QAM omeprazole 20 mg Tablet,Delayed Release (Dr/Ec) 20 mg PO QAM Xarelto 20 mg Tablet 20 mg PO QAM Rx Instructions: must administer with evening meal albuterol sulfate 90 mcg/actuation Hfa Aerosol Inhaler 1 inh INHALATION QID PRN (Reason: sob) Discharge Orders: Discharge Order (Routine); Ordered 01/05/25 Ordered By: Dom Márquez Admission Data Admit Date/Time: 01/03/25 15:11 Attending Provider: Dom Márquez Admit Provider: Dom Márquez Primary Care Provider: Cata Diaz Other Providers: Sienna Nicole; Marci,Home [facility]
== END 2025-01-05 13:07 | disposition home health service (06) | DRG 428 ==
LOC: ASU 10:02 → 3W 15:11